=== PATIENT | male | born 1985 | race Two or more races ===

== ENCOUNTER 2016-11-27 12:30 | Emergency (ER) | payer MEDICAID ==
[~2016-11-27] VITALS: Ht 177.8 cm; Wt 95.3 kg
--- NOTE | 2016-11-27 13:50 | Emergency Room Report ---
History of Present Illness General Chief Complaint: Skin Rash/Abscess Source: Patient Present Illness HPI 31-year-old male presents emergency department complaining of itchy rash x2 weeks in addition to other family members living in the household with similar symptoms. Patient denies recent travel. Patient reports small tiny itchy bumps mainly on the hands and wrists. Denies nausea, vomiting, fevers, chills. Denies new medications, lotions, detergents, or foods. Denies CP, Palpitations , LOC, AMS, dizziness, Changes in Vision, Sensation, paresthesias, or a sudden severe headache. Allergies: Coded Allergies: No Known Allergies (Unverified , 11/27/16) Patient History Past Medical History: see triage record Past Surgical History: none Pertinent Family History: none Immunizations: UTD Reviewed Nursing Documentation: PMH: Agreed, PSxH: Agreed Nursing Documentation-PMH Past Medical History: No History, Except For Hx Gastrointestinal Problems: Yes - liver problem Review of Systems All Other Systems: negative except mentioned in HPI Physical Exam Vital Signs Date Time Temp Pulse Resp B/P Pulse Ox O2 Delivery O2 Flow Rate FiO2 11/27/16 13:22 98.2 76 16 121/54 99 Room Air Sp02 EP Interpretation: reviewed, normal General Appearance: no apparent distress, alert, GCS 15, non-toxic Head: normocephalic, atraumatic Eyes: bilateral eye PERRL, bilateral eye normal inspection ENT: hearing grossly normal, normal pharynx, no angioedema, normal voice Neck: full range of motion, supple/symm/no masses Respiratory: lungs clear, normal breath sounds, speaking full sentences Cardiovascular #1: regular rate, rhythm, no edema Musculoskeletal: back normal, gait/station normal, normal range of motion, non- tender, no calf tenderness Neurologic: alert, oriented x3, responsive, motor strength/tone normal, sensory intact, speech normal Psychiatric: judgement/insight normal, memory normal, mood/affect normal, no suicidal/homicidal ideation Skin: normal color, warm/dry, well hydrated, rash - dry scaly rash to the hands bilaterally with linear papules noted and obvious excoriations between the finger webs and the wrists bilaterally. no evidence of secondary infeciton at this time. Lymphatic: no adenopathy Medical Decision Making PA Attestation Dr. Hilton is my supervising Physician whom patient management has been discussed with. Diagnostic Impression: Primary Impression: Rash and other nonspecific skin eruption ER Course 31-year-old male presents emergency department complaining of itchy rash x2 weeks in addition to other family members living in the household with similar symptoms. Patient denies recent travel. Patient reports small tiny itchy bumps mainly on the hands and wrists. Denies nausea, vomiting, fevers, chills. Denies new medications, lotions, detergents, or foods. Denies CP, Palpitations , LOC, AMS, dizziness, Changes in Vision, Sensation, paresthesias, or a sudden severe headache. Ddx considered but are not limited to cellulitis, scabies, shingles, varicella, dermatitis, urticaria, eczema, tinea Vital signs: are WNL, pt. is afebrile H&PE are most consistent with scabies. no evidence of secondary infection at this time. ORDERS: none required at this time, the diagnosis is clinical ED INTERVENTIONS: D/W family the necessity to decontaminate bedding, rugs, clothing, and couches. DISCHARGE: At this time pt. is stable for d/c to home. Will provide printed patient care instructions, and any necessary prescriptions. Care plan and follow up instructions have been discussed with the patient prior to discharge. Last Vital Signs Date Time Temp Pulse Resp B/P Pulse Ox O2 Delivery O2 Flow Rate FiO2 11/27/16 13:22 98.2 76 16 121/54 99 Room Air Disposition: HOME, SELF-CARE Condition: Stable Scripts Permethrin* (ELIMITE*) 60 Gm Cream..g. 1 APPLIC TOPIC ONCE, #60 GM 1 Refill Apply cream from head to toe; leave on for 8-14 hours before washing off with water; may reapply in 1 week if live mites appear. Prov: Eliana Lantigua 11/27/16 Diphenhydramine Hcl* (BENADRYL*) 25 Mg Capsule 25 MG ORAL Q6H Y for Itching for 14 Days, #30 CAP Prov: Eliana Lantigua 11/27/16 Patient Instructions: Scabies, Pediatric Additional Instructions: Take medications as directed. Follow up with PCP in 3-5 days Return sooner to ED if new symptoms occur, or current symptoms become worse. - Please note that this Emergency Department Report was dictated using [employer] wire [employer] technology software, occasionally this can lead to erroneous entry secondary to interpretation by the dictation equipment. Eliana Lantigua. Nov 27, 2016 13:50
[2016-11-27] MEDS ORDERED: PERMETHRIN60 GM TOPIC (13:52)
[2016-11-27] MEDS ORDERED: BENADRYL25 MG ORAL (13:52)
[2016-11-27 14:47] VITALS: BP 121/54
[2016-11-27 14:49] VITALS: BP 121/54
== END 2016-11-27 14:50 | disposition home or self-care (01) ==
LOC: EMR 13:50
DX: R21 Rash and other nonspecific skin eruption (principal); Z87.19 Personal history of other diseases of the digestive system
CPT/HCPCS: 99284